=== PATIENT | female | born 1995 | race Caucasian/White ===

== ENCOUNTER 2021-02-10 10:16 | Outpatient (REF) | payer OTHER, SELFPAY ==
[2021-02-10 11:29] LABS: MANUAL DIFF FLAG NO
[2021-02-10 11:31] LABS: Basophils Percent Auto 0.7 % (0-2); Eosinophils Absolute Auto 0.1 X10*3/uL (0.0-0.4); Eosinophils Percent Auto 1.9 % (0-4); Hematocrit 44.2 % (37-47); Hemoglobin 14.8 g/dl (12.0-16.0); Imm Gran Abs Auto 0.01 X10*3/uL (0.00-0.03); Imm Gran Pct Auto 0.2 % (0.0-0.4); Lymphocytes Absolute Auto 2.5 X10*3/uL (1.2-4.9); Lymphocytes Percent Auto 42.3 % (20-40); Mean Corpuscular HGB Conc 33.5 g/dl (31.0-35.0); Mean Corpuscular Volume 89.7 fL (80-98); Mean Platelet Volume 11.4 fL (9.4-12.3); Monocytes Absolute Auto 0.5 X10*3/uL (0.1-1.2); Monocytes Percent Auto 8.7 % (2-11); Neutrophils Absolute Auto 2.7 X10*3/uL (2.0-8.3); Neutrophils Percent Auto 46.2 % (45-73); Platelet Count 210 X10*3/uL (160-400); Red Blood Count 4.93 X10*6/uL (4.20-5.50); Red Cell Distribution Width 11.5 % (11.0-16.0); White Blood Count 5.8 X10*3/uL (4.8-10.8)
[2021-02-10 12:11] LABS: Alanine Aminotransferase 12 U/L (0-31); Anion Gap 14 (12-20); Aspartate Amino Transferase 17 U/L (5-31); Blood Urea Nitrogen 7 mg/dL (9-16); Calcium 9.7 mg/dL (8.4-10.2); Carbon Dioxide 23 mmol/L (22-29); Chloride 108 mmol/L (96-108); Cholesterol 155 mg/dL; Estimated Glomerular Filt Rate > 60; Glucose Fasting 67 mg/dL (60-99); HDL Cholesterol 64 mg/dL; LDL Cholesterol Calculated 85 mg/dl; Potassium 4.7 mmol/L (3.3-5.1); Sodium 140 mmol/L (135-145); Triglycerides 34 mg/dL
[2021-02-10 12:19] LABS: Vitamin D 25-OH Total 29.2 ng/mL (>30)
[2021-02-10 12:36] LABS: Folate 15.3 ng/mL (> or = 4.0); Vitamin B12 321 pg/mL (200-900)
== END 2021-02-10 10:17 | disposition home or self-care (01) ==
LOC: HO.HMGCLDS 10:16
PROVIDERS: PCP Internal Medicine; Visit Provider Internal Medicine
DX: Z00.00 Encounter for general adult medical examination without abnormal findings (principal); I10 Essential (primary) hypertension; Z80.8 Family history of malignant neoplasm of other organs or systems
CPT/HCPCS: 36415; 80048; 80061; 82306; 82607; 82746; 84443; 84450; 84460; 85025

== ENCOUNTER 2022-06-08 09:56 | Outpatient (REF) | payer OTHER, SELFPAY ==
[2022-06-08 12:01] LABS: Alanine Aminotransferase 15 U/L (0-31); Aspartate Amino Transferase 19 U/L (5-31); Cholesterol 165 mg/dL; Glucose Fasting 83 mg/dL (60-99); HDL Cholesterol 57 mg/dL; LDL Cholesterol Calculated 101 mg/dl; Triglycerides 36 mg/dL
[2022-06-08 12:18] LABS: Vitamin D 25-OH Total 21.4 ng/mL (>30)
== END 2022-06-08 09:57 | disposition home or self-care (01) ==
LOC: HO.WFDLDS 09:56
PROVIDERS: Visit Provider Internal Medicine
DX: Z00.01 Encounter for general adult medical examination with abnormal findings (principal); R63.6 Underweight; F41.1 Generalized anxiety disorder; F50.82 Avoidant/restrictive food intake disorder
CPT/HCPCS: 36415; 80061; 82306; 82947; 84450; 84460

== ENCOUNTER 2022-10-07 07:17 | Emergency (ER) | payer OTHER, SELFPAY ==
[2022-10-07 07:20] VITALS: BP 126/87; PULSE 107; RESP 18; TEMP 36.8; O2SAT 99; BMI 17.5
--- NOTE | 2022-10-07 07:33 | ED_ITS ---
HPI - Female Genitourinary General Chief complaint: Urogenital-Female Stated complaint: uti Time Seen by Provider: 10/07/22 07:28 Source: patient Mode of arrival: ambulatory Limitations: no limitations History of Present Illness HPI Narrative: 26-year-old female presents with UTI. Her symptoms started 3 days ago with urinary frequency, urgency, dysuria and hematuria. She started using azo. Today, she has developed low back pain. She denies any nausea, vomiting, diarrhea, fevers or chills. She continues to have the additional urinary symptoms. She describes her symptoms as moderate to severe. There is no clear relieving or exacerbating features. Her pain does not radiate. It is achy in nature. Related Data Home Medications Medication Instructions Recorded Confirmed loratadine 10 mg tablet (Claritin) 10 mg PO DAILY 02/10/21 02/10/21 medroxyprogesterone 150 mg/mL mg IM 02/10/21 02/10/21 intramuscular suspension montelukast 10 mg tablet 10 mg PO DAILY 02/10/21 02/10/21 Previous Rx's Medication Instructions Recorded cephalexin 500 mg capsule 500 mg PO BID #20 caps 10/07/22 Allergies Allergy/AdvReac Type Severity Reaction Status Date / Time ibuprofen Allergy Unknown swelling Verified 06/02/22 13:45 Review of Systems Review of Systems: CONSTITUTIONAL: Denies weight loss, fever and chills. HEENT: Denies changes in vision and hearing. RESPIRATORY: Denies SOB and cough. CV: Denies palpitations no CP. GI: Denies abdominal pain, nausea, vomiting and diarrhea. : + dysuria and urinary frequency. MSK: Denies myalgia and joint pain. SKIN: Denies rash and pruritus. NEUROLOGICAL: Denies headache and syncope. PSYCHIATRIC: Denies recent changes in mood. Denies anxiety and depression. All other ROS are negative unless in HPI PMFSH Past Medical History Medical History Avoidant-restrictive food intake disorder (ARFID) Family history of thyroid cancer Generalized anxiety disorder Multiple environmental allergies Surgical History No pertinent past surgical history Family History Family History Maternal Aunt Substance use disorder Maternal Uncle Substance use disorder Mother Bronchial asthma Thyroid cancer Paternal Grandfather Colon cancer, Onset Age: 35 Paternal Grandmother Alzheimer disease, Onset Age: 60 Social History Social History Housing: House Alcohol intake: never Patient Tobacco Use Status: Never used Tobacco Smoked in Last 30 Days: No e-Cigarette/Vaping Use: Never Used Use of substances other than those prescribed or required for medical reasons: No Advance Directives: No Advance Directives Information Provided: Yes Patient : Yes service: No Current occupational status: employed Cognitive needs: No Hearing needs: No Vision needs: No Physical Exam Vital Signs: Vital Signs: Last Vital Signs Temp 98.2 F 10/07/22 07:20 Pulse 107 H 10/07/22 07:20 Resp 18 10/07/22 07:20 BP 126/87 10/07/22 07:20 Pulse Ox 99 10/07/22 07:20 O2 Del Method Room Air 10/07/22 07:20 BMI result Body Mass Index 17.5 GEN: Well developed, no acute distress, alert, oriented HEENT: Normocephalic, atraumatic, normal external ears, nose appears normal, no oropharyngeal edema or exudates Eyes: Normal to appearance Neck: Supple, no lymphadenopathy Respiratory: Talks in complete sentences, no respiratory distress, clear to auscultation bilaterally Cardiovascular: Regular rate and rhythm, no murmurs rubs or gallops Abdomen: Soft, nontender, nondistended, no guarding, no rebound Back: + CVA tenderness Extremities: No clubbing cyanosis or edema Neurologic: No focal neurologic deficits, cranial nerves 2-12 intact, strength is 5/5 bilaterally Skin: No rash Course Course Course Narrative: 26-year-old female presents with urinary symptoms and now has CVA tenderness. I suspect patient has an ascending UTI. At this time awaiting urinalysis. Patient will likely need be on antibiotics. She can continue azo. She will be encouraged to increase her fluid intake. There is no indication for imaging at this time. Reevaluation(s) Reevaluation #1: Urinalysis returns for consistent for urinary tract infection. Will start patient on Keflex twice daily for 10 days. Follow-up will be as needed. Time: 08:24 Medical Decision Making Medical Decision Making MDM Narrative: 26-year-old female presents with urinary frequency, urgency, dysuria, low back pain. Examination revealed bilateral CVA tenderness. Abdomen is soft and nontender. Will check urinalysis. Assuming this is urinary tract infection, will treat with antibiotics. She will also receive medications for symptomatic relief. Differential diagnosis includes urinary tract infection, pyelonephritis, nephro lithiasis, ureterolithiasis, intra-abdominal infection. Plan urinalysis, likely antibiotics and discharged home. Differential Diagnosis Differential Diagnoses: The differential diagnosis associated with the p resentation includes (See above) Lab Data MDM Lab Attestation statement: I reviewed the patient's lab results. Labs: Lab Results 10/07/22 10/07/22 Range/Units 07:46 07:46 Urine Color Yellow Urine Appearance Turbid Urine pH 7.0 (5.0-9.0) Ur Specific [place] 1.015 (1.005-1.025) Urine Protein 300 (3+) H (Neg-Trace) mg/dL Urine Glucose (UA) Negative (Negative) mg/dL Urine Ketones Negative (Negative) mg/dL Urine Blood Large (3+) H (Negative) Urine Nitrite Positive H (Negative) Ur Leukocyte Esterase Large (3+) H (Negative) Urine RBC >20 H (0-2) /HPF Urine WBC >50 H (0-5) /HPF Ur Squamous Epith Cells 6-10 (0-2) /HPF Urine Bacteria 3+ (None Seen) Hyaline Casts 3-5 (0-2) /LPF Urine Test NEGATIVE (NEGATIVE) Prescription Management I considered prescription management with: Antibiotic Discharge Plan Discharge Clinical Impression: Pyelonephritis Patient Disposition: Home, Self-Care Instructions: Kidney Infection (ED) Prescriptions: New cephalexin 500 mg capsule 500 mg PO BID Qty: 20 0RF No Action montelukast 10 mg tablet 10 mg PO DAILY loratadine [Claritin] 10 mg tablet 10 mg PO DAILY medroxyprogesterone 150 mg/mL suspension IM Referrals: Physician,Unknown J [Primary Care Provider] - (PMD 3-5 days if no improvement)
[2022-10-07 07:56] LABS: Appearance Urine Turbid; Color Urine Yellow; Glucose Urine UA Negative (Negative); Leukocyte Esterase Urine Large (3+) (Negative); Nitrite Urine Positive (Negative); Specific Gravity - Urine 1.015 (1.005-1.025); UMIC TRIGGER UACC YES; Urine Blood Large (3+) (Negative); Urine Ketones Negative (Negative); Urine Protein 300 (3+) mg/dL (Neg-Trace)
[2022-10-07 07:57] LABS: UPreg QC Valid YES; Urine Pregnancy NEGATIVE (NEGATIVE)
[2022-10-07 08:11] LABS: Bacteria Urine 3+ (None Seen); RBC Urine >20 /HPF (0-2); UACC Culture Trigger YES; WBC Urine >50 /HPF (0-5)
[2022-10-07] MEDS: cephALEXin 500 MG CAPSULE PO (08:47)
== END 2022-10-07 08:51 | disposition home or self-care (01) ==
PROVIDERS: Emergency Provider Emergency Medicine
DX: N12 Tubulo-interstitial nephritis, not specified as acute or chronic (principal); Z79.899 Other long term (current) drug therapy
CPT/HCPCS: 81001; 81025; 87086; 87088; 87186; 99283; 99284

== ENCOUNTER 2023-10-17 10:28 | Outpatient (AMB) | payer OTHER, SELFPAY ==
[2023-10-17 10:35] VITALS: BP 100/60; PULSE 98; O2SAT 97; BMI 18.2
--- NOTE | 2023-10-17 10:35 | A.OFFPC_ITS ---
Vital Signs 10/17/23 10:35 Height 5 ft 4 in Weight 106 lb BMI 18.2 BP 100/60 Blood Pressure Location Lt brachial Position Sitting Pulse 98 Pulse Source Pulse Oximeter Pulse Oximetry (%) 97 Oxygen Delivery Method Room Air Intake Visit Reasons: PE Intake Note: Pt is here today for her PE Allergies ibuprofen Allergy (Unknown, Verified 10/17/23 10:44) swelling Medication List - Last Reconciled 10/17/23 by Radha Jiménez MD loratadine (Claritin) 10 mg PO DAILY medroxyprogesterone mg IM montelukast 10 mg PO DAILY Tobacco use date assessed: 10/17/23 Dental Screening Dental Screen Date: 10/17/23 Did you have a dental visit in the last 12 months?: No Was dental information given to patient?: Patient has dentist HPI PE HPI Details 27-year-old lady here today for physical exam. Currently goes to [facility] for routine Pap and pelvic exam, last done 2021 with negative findings. She previously was on Nexplanon but had irregular periods and was switched to Depo-Provera. Patient states however that she has been on it for more than 2 years and is thinking to switch to control pills. She has Generalized anxiety disorder, and Avoidant Food-Restrictive Food intake disorder followed at [facility] by Lashell Fonseca. She has multiple environmental allergies currently taking loratadine and montelukast. She has been feeling well, has gained some weight since last visit, no complaints at present agustin. Has environmental allergies currently takes loratadine and montelukast. [facility] Medical History Family history of diabetes mellitus in father Generalized anxiety disorder Avoidant-restrictive food intake disorder (ARFID) Family history of thyroid cancer Multiple environmental allergies Surgical History No pertinent past surgical history Family History Maternal Aunt Substance use disorder Maternal Uncle Substance use disorder Mother Bronchial asthma Thyroid cancer Paternal Grandfather Colon cancer, Onset Age: 35 Paternal Grandmother Alzheimer disease, Onset Age: 60 Social History Housing: House Alcohol intake: never Patient Tobacco Use Status: Never used Tobacco e-Cigarette/Vaping Use: Never Used service: No Current occupational status: employed Cognitive needs: No Hearing needs: No Vision needs: No Female Reproductive History Menstrual control method: progesterone injection Questionnaire PHQ-9 Over the last 2 weeks, how often have you been bothered by any of the following problems? 1. Little interest or pleasure in doing things: not at all 2. Feeling down, depressed, or hopeless: not at all 3. Trouble falling or staying asleep, or sleeping too much: not at all 4. Feeling tired or having little energy: not at all 5. Poor appetite or overeating: not at all 6. Feeling bad about yourself - or that you are a failure or have let yourself or your family down: not at all 7. Trouble concentrating on things, such as reading the newspaper or watching television: not at all 8. Moving or speaking so slowly that other people could have noticed. Or the opposite - being so fidgety or restless that you have been moving around a lot more than usual: not at all 9. Thoughts that you would be better off or of hurting yourself in some way: not at all Total score: 0 Depression Screening Interpretation: Negative Depression Screening Done: Yes 71322 - PHQ-9 Billing: Yes Source: Developed by Drs. Dave Addison, Orquidea Manley, Nir Goins and colleagues, with an educational rajeev from [employer]. Thrive Questionnaire Date Thrive assessed: 10/17/23 I am a: Patient What is your living situation today?: I have a steady place to live Within the past 12 months, did the food you bought not last and you didn't have the money to get more?: Never true Within the past 12 months, did you worry whether your food would run out before you got money to buy more?: Never true Do you have trouble paying for medicines?: No Do you have trouble getting transportation to medical appointments?: No Do you have trouble paying your heating and electricity bill?: No Do you have trouble taking care of your child, family member or friend?: No Do you have trouble with day-to-day activities such as bathing, preparing meals, shopping, managing finances, etc.?: No Are you currently unemployed and looking for a job?: No Are you interested in more education?: No THRIVE Score: 0 AUDIT C Alcohol Use Questionnaire (AUDIT-C) 1. How often do you have a drink containing alcohol?: 2-4 times a month 2. How many drinks containing alcohol do you have on a typical day when you are drinking?: 3 or 4 3. How often do you have six or more drinks on one occasion?: Less than monthly Total Score: 4 KERI-7 AMB Questionnaire KERI-7 Date KERI - 7 assessed: 10/17/23 Feeling nervous, anxious, or on edge: 0 = Not at all Not being able to stop or control worryin = Not at all Worrying too much about different things: 0 = Not at all Trouble relaxin = Not at all Being so restless that it is hard to sit still: 0 = Not at all Becoming easily annoyed or irritable: 0 = Not at all Feeling afraid as if something awful might happen: 0 = Not at all Total KERI-7 score (0-4 normal; 5-9 mild; 10-14 moderate; 15-21 severe): 0 Source: Developed by Drs. Dave Addison, Orquidea Manley, Nir Goins and colleagues, with an educational rajeev from [employer]. KERI-7 Assessment Billing KERI-7 Assessment Tool: KERI-7 Assessment 19756 Review of Systems Const Denies body aches, Denies fatigue, Denies fever(s), Denies headache(s) and Denies weakness Eyes Denies change in vision, Denies eye discharge and Denies itchy eyes ENT Denies dizziness, Denies headache(s), Denies nasal congestion, Denies nasal discharge and Denies sore throat Card Denies chest pain, Denies lightheadedness, Denies palpitations and Denies dyspnea Resp Denies chest congestion, Denies cough, Denies dyspnea and Denies wheezing GI Denies abdominal pain, Denies change in bowel habits and Denies heartburn Denies urinary frequency, Denies dysuria and Denies urinary urgency Musc Reports no additional complaints and Reports stiffness (Occasional) Skin/Breast Denies lesions and Denies rash Neuro Denies dizziness, Denies headache(s) and Denies weakness Psych Reports as per HPI Endo Denies fatigue, Denies polydipsia, Denies polyuria and Denies palpitations [place]/Lymph Denies easy bruising Aller/Immun Denies itchy eyes, Denies seasonal rhinorrhea and Denies wheezing Physical exam (Primary Care) Vital Signs: Last Vital Signs Pulse 98 10/17/23 10:35 BP 100/60 10/17/23 10:35 Pulse Ox 97 10/17/23 10:35 Oxygen Delivery Method Room Air 10/17/23 10:35 BMI result Body Mass Index 18.2 BMI Assessment/Plan discussion: Low BMI Low, Plan discussed: lifestyle, increase calorie intake, dietary and other (Currently being followed by a habilitation training specialist) Tobacco/Smoking Status: Tobacco use Status Tobacco use date assessed 06/02/22 10/21/22 11:03 Patient Tobacco Use Status Never used Tobacco 10/21/22 13:40 e-Cigarette/Vaping Use Never Used 10/21/22 11:03 Depression Screening Interpretation: Negative Thrive Assessment: Date of Thrive Assessment Date Thrive assessed 06/02/22 10/21/22 11:03 Const General: cooperative, comfortable and no acute distress Orientation/consciousness: patient oriented x3 HENMT Ears: hearing grossly normal bilaterally, external ears normal, TM's normal bilaterally and EAC's normal General nose exam: Normal external nose present, Normal nasal mucous membranes and turbinates present and No nasal discharge present Mouth: Normal oral and palatal mucosa present, oropharynx normal and moist mucous membranes Throat: Yes posterior oropharynx normal Eyes General: appearance normal, both eyes and all related structures Neck Neck: Yes full ROM, Yes no lymphadenopathy and Yes supple Thyroid: Thyroid normal Chest Chest palpation & inspection: normal inspection of the chest Breast/axilla palpation: normal palpation of the breasts Resp Effort & Inspection: normal respiratory effort and able to speak in complete sentences Auscultation: clear to auscultation bilaterally Cardio Rate: regular rate Rhythm: regular rhythm Heart sounds: S1 normal heart sound present and S2 normal heart sound present GI Inspection: Yes normal to inspection Palpation (GI): Soft to palpation, nontender and no masses Auscultation: normal bowel sounds Other: Deferred, goes to [facility], last Pap smear was in 2021 with normal findings Back/Spine/Pelvis Cervical Spine: cervical ROM normal Thoracic/Lumbar Spine: thoracic and lumbar spine normal to inspection Skin General skin exam: no rashes or lesions noted Neuro General: patient oriented x3, gait normal, tone normal, moves all extremities, Normal light touch and pain sensation and no focal motor deficits Cognition (Neuro): normal cognition Gait exam (Neuro): Normal gait present Motor exam (neuro): 5/5 motor strength present throughout Extrem General: Yes normal to inspection, Yes full ROM, Yes no joint enlargement, Yes no clubbing, cyanosis or edema and Yes no calf tenderness Psych Appearance: grossly normal Mental Status: mental status grossly normal Speech and movement: Normal speech and movement present Affect: normal affect Attitude: cooperative Thought process: Normal thought process present Assessment and Plan Assessment & Plan (1) Annual visit for general adult medical examination with abnormal findings: Code(s): Z00.01 - Encounter for general adult medical examination with abnormal findings Plan: Will check appropriate labs. Recommended dental visit every 6 months and regular eye exams, at least every 2 years. . Instructed to do self-breast exam, and recommended to get yearly mammogram, starting at age 40. COVID vaccines in the past but does not want to get the booster, reminded to get her yearly flu shot and is up-to-date with her Tdap (2) Family history of thyroid cancer: Code(s): Z80.8 - Family history of malignant neoplasm of other organs or systems Plan: Will check TSH and free T4 (3) Generalized anxiety disorder: Comment: sees therapist at [facility] Lashell Fonseca Code(s): F41.1 - Generalized anxiety disorder Plan: Currently followed by behavioral therapist and [facility] (4) History of vitamin D deficiency: Code(s): Z86.39 - Personal history of other endocrine, nutritional and metabolic disease Plan: Will check vitamin-D level Orders: Orders Vitamin D 25-OH Total Today F41.1 - Generalized anxiety disorder, Z00.01 - Encounter for general adult medical examination with abnormal findings, Z13.220 - Encounter for screening for lipoid disorders, Z80.8 - Family history of malignant neoplasm of other organs or systems, Z83.3 - Family history of diabetes mellitus, Z86.39 - Personal history of other endocrine, nutritional and metabolic disease Hemoglobin and Hematocrit Today F41.1 - Generalized anxiety disorder, Z00.01 - Encounter for general adult medical examination with abnormal findings, Z13.220 - Encounter for screening for lipoid disorders, Z80.8 - Family history of malignant neoplasm of other organs or systems, Z83.3 - Family history of diabe kae mellitus, Z86.39 - Personal history of other endocrine, nutritional and metabolic disease Alanine Aminotransferase Today F41.1 - Generalized anxiety disorder, Z00.01 - E ncounter for general adult medical examination with abnormal findings, Z13.220 - Encounter for screening for lipoid disorders, Z80.8 - Family history of malignant neoplasm of other organs or systems, Z83.3 - Family history of diabetes mellitus, Z86.39 - Personal history of other endocrine, nutritional and metabolic disease Aspartate Amino Transferase Today F41.1 - Generalized anxiety disorder, Z00.01 - Encounter for general adult medical examination with abnormal findings, Z13.220 - Encounter for screening for lipoid disorders, Z80.8 - Family history of malignant neoplasm of other organs or systems, Z83.3 - Family history of diabetes mellitus, Z86.39 - Personal history of other endocrine, nutritional and metabolic disease Lipid Panel Today F41.1 - Generalized anxiety disorder, Z00.01 - Encounter for general adult medical examination with abnormal findings, Z13.220 - Encounter for screening for lipoid disorders, Z80.8 - Family history of malignant neoplasm of other organs or systems, Z83.3 - Family history of diabetes mellitus, Z86.39 - Personal history of other endocrine, nutritional and metabolic disease Glucose Fasting Today F41.1 - Generalized anxiety disorder, Z00.01 - Encounter for general adult medical examination with abnormal findings, Z13.220 - Encounter for screening for lipoid disorders, Z80.8 - Family history of malignant neoplasm of other organs or systems, Z83.3 - Family history of diabetes mellitus, Z86.39 - Personal history of other endocrine, nutritional and metabolic disease TSH reflex Free T4 Today F41.1 - Generalized anxiety disorder, Z00.01 - Encounter for general adult medical examination with abnormal findings, Z13.220 - Encounter for screening for lipoid disorders, Z80.8 - Family history of malignant neoplasm of other organs or systems, Z83.3 - Family history of diabetes mellitus, Z86.39 - Personal history of other endocrine, nutritional and metabolic disease Coding Level of Care Code Est Pt Prev Care 18-39y([id number]) Diagnoses Annual visit for general adult medical examination with abnormal findings Z00.01 Family history of thyroid cancer Z80.8 Generalized anxiety disorder F41.1 History of vitamin D deficiency Z86.39 Additional Codes KERI-7 Assessment Billing - KERI-7 Assessment Tool: KERI-7 Assessment [id number] ([id number])
== END 2023-10-17 11:01 | disposition home or self-care (01) ==
PROVIDERS: PCP Internal Medicine; Visit Provider Internal Medicine
DX: Z00.00 Encounter for general adult medical examination without abnormal findings (principal); Z80.8 Family history of malignant neoplasm of other organs or systems; F41.1 Generalized anxiety disorder; Z86.39 Personal history of other endocrine, nutritional and metabolic disease
CPT/HCPCS: 99395

== ENCOUNTER 2023-10-18 09:38 | Outpatient (REF) | payer OTHER, SELFPAY ==
[2023-10-18 13:15] LABS: Hematocrit 40.7 % (37.0-47.0); Hemoglobin 13.5 g/dl (12.0-16.0)
[2023-10-18 13:37] LABS: Alanine Aminotransferase 13 U/L (0-31); Aspartate Amino Transferase 19 U/L (5-31); Cholesterol 154 mg/dL (<200); Glucose Fasting 84 mg/dL (60-99); HDL Cholesterol 69 mg/dL (>40); LDL Cholesterol Calculated 75 mg/dL (<100); Triglycerides 54 mg/dL (<150)
[2023-10-18 13:54] LABS: TSH reflex Free T4 1.91 uIU/mL (0.32-4.0); Vitamin D 25-OH Total 60.1 ng/mL (>30)
== END 2023-10-18 09:39 | disposition home or self-care (01) ==
LOC: HO.WFDLDS 09:38
PROVIDERS: Visit Provider Internal Medicine
DX: Z00.01 Encounter for general adult medical examination with abnormal findings (principal); F41.1 Generalized anxiety disorder; Z80.8 Family history of malignant neoplasm of other organs or systems; Z86.39 Personal history of other endocrine, nutritional and metabolic disease; Z13.220 Encounter for screening for lipoid disorders; Z83.3 Family history of diabetes mellitus
CPT/HCPCS: 36415; 80061; 82306; 82947; 84443; 84450; 84460; 85014; 85018

== ENCOUNTER 2024-12-02 08:26 | Outpatient (AMB) | payer BC, SELFPAY ==
--- NOTE | 2024-12-02 08:41 | MHC.PC.OV ---
Vital Signs 12/02/24 08:42 Height 5 ft 4 in Weight 99 lb 6 oz BMI 17.1 BP 100/80 Blood Pressure Location Rt brachial Position Sitting Respiration 15 Pulse 87 Pulse Source Pulse Oximeter Temp 98.2 F Temp Source Oral Pulse Oximetry (%) 99 Oxygen Delivery Method Room Air Intake Visit Reasons: PE Intake Note: Pt is here today for her PE: last papsmear 07/23/21 Is last menstrual period known: Yes Last menstrual period: 11/04/24 Allergies ibuprofen Allergy (Unknown, Verified 12/02/24 08:59) swelling Medication List - Last Reconciled 12/02/24 by Radha Jiménez MD desogestrel-ethinyl estradiol 0.15-0.03 mg (Apri) 1 tab PO DAILY loratadine (Claritin) 10 mg PO DAILY montelukast 10 mg PO DAILY Tobacco use date assessed: 12/02/24 Dental Screening Dental Screen Date: 10/17/23 HPI PE HPI Details - The patient is a 29-year-old female presenting for an annual physical examination. - Allergic rhinitis: Managed with montelukast, effective for both allergies and asthma. Developed allergies to dogs after returning home, but current non-shedding dog does not trigger symptoms. - Exercise-induced bronchospasm: Symptoms noted during high school, with mild exertional dyspnea currently. - History of urinary tract infection: Previous kidney infection treated with antibiotics, occasional back pain post-alcohol consumption, especially beer. - Family history: Mother had thyroid cancer; father has type 2 diabetes mellitus. No personal history of these conditions. - Generalized anxiety disorder: Managed with behavioral techniques, no medication used. -last cervical cancer screening and pelvic exam was done in 2021 with benign findings, goes to [facility] Medical History (Updated 12/02/24 @ 09:05 by Radha Jiménez MD) Exercise-induced bronchospasm Family history of diabetes mellitus in father Generalized anxiety disorder Avoidant-restrictive food intake disorder (ARFID) Family history of thyroid cancer Multiple environmental allergies Surgical History No pertinent past surgical history Family History Maternal Aunt Substance use disorder Maternal Uncle Substance use disorder Mother Bronchial asthma Thyroid cancer Paternal Grandfather Colon cancer, Onset Age: 35 Paternal Grandmother Alzheimer disease, Onset Age: 60 Social History Housing: House Alcohol intake: never Patient Tobacco Use Status: Never used Tobacco e-Cigarette/Vaping Use: Never Used service: No Current occupational status: employed Cognitive needs: No Hearing needs: No Vision needs: No Female Reproductive History Menstrual Date of last menstrual period: 11/04/24 Other: Goes to [facility] for her routine Pap and pelvic exam Questionnaire PHQ-9 Over the last 2 weeks, how often have you been bothered by any of the following problems? 1. Little interest or pleasure in doing things: not at all 2. Feeling down, depressed, or hopeless: not at all 3. Trouble falling or staying asleep, or sleeping too much: not at all 4. Feeling tired or having little energy: not at all 5. Poor appetite or overeating: not at all 6. Feeling bad about yourself - or that you are a failure or have let yourself or your family down: not at all 7. Trouble concentrating on things, such as reading the newspaper or watching television: not at all 8. Moving or speaking so slowly that other people could have noticed. Or the opposite - being so fidgety or restless that you have been moving around a lot more than usual: not at all 9. Thoughts that you would be better off or of hurting yourself in some way: not at all Total score: 0 Depression Screening Interpretation: Negative Depression Screening Done: Yes 64396 - PHQ-9 Billing: Yes Source: Developed by Drs. Dave Addison, Orquidea Manley, Nir Goins and colleagues, with an educational rajeev from [employer]. Thrive Questionnaire Date Thrive assessed: 12/01/24 I am a: Patient What is your living situation today?: I have a steady place to live Within the past 12 months, did the food you bought not last and you didn't have the money to get more?: Never true Within the past 12 months, did you worry whether your food would run out before you got money to buy more?: Never true Do you have trouble paying for medicines?: No Do you have trouble getting transportation to medical appointments?: No Do you have trouble paying your heating and electricity bill?: No Do you have trouble taking care of your child, family member or friend?: No Do you have trouble with day-to-day activities such as bathing, preparing meals, shopping, managing finances, etc.?: No Are you currently unemployed and looking for a job?: No Are you interested in more education?: No Please select the resources that you would like help with: None Currently or been in a relationship where the following occur: No concerns reported THRIVE Score: 0 AUDIT C Alcohol Use Questionnaire (AUDIT-C) 1. How often do you have a drink containing alcohol?: 2-4 times a month 2. How many drinks containing alcohol do you have on a typical day when you are drinking?: 1 or 2 3. How often do you have six or more drinks on one occasion?: Less than monthly Total Score: 3 Score Reviewed/Action Taken: Yes KERI-7 AMB Questionnaire KERI-7 Date KERI - 7 assessed: 12/02/24 Feeling nervous, anxious, or on edge: 0 = Not at all Not being able to stop or control worryin = Not at all Worrying too much about different things: 0 = Not at all Trouble relaxin = Not at all Being so restless that it is hard to sit still: 0 = Not at all Becoming easily annoyed or irritable: 0 = Not at all Feeling afraid as if something awful might happen: 0 = Not at all Total KERI-7 score (0-4 normal; 5-9 mild; 10-14 moderate; 15-21 severe): 0 Source: Developed by Drs. Dave Addison, Orquidea Manley, Nir Goins and colleagues, with an educational rajeev from [employer]. KERI-7 Assessment Billing KERI-7 Assessment Tool: KERI-7 Assessment 60331 Review of Systems Const Denies body aches, Denies fatigue, Denies fever(s), Denies headache(s) and Denies weakness Eyes Denies change in vision, Denies eye discharge and Denies itchy eyes ENT Denies dizziness, Denies headache(s), Denies nasal congestion, Denies nasal discharge and Denies sore throat Card Denies chest pain, Denies lightheadedness, Denies palpitations and Denies dyspnea Resp Denies chest congestion, Denies cough, Denies dyspnea and Denies wheezing GI Denies abdominal pain, Denies change in bowel habits and Denies heartburn Denies urinary frequency, Denies dysuria and Denies urinary urgency Musc Reports no additional complaints and Reports stiffness (Occasional) Skin/Breast Denies lesions and Denies rash Neuro Denies dizziness, Denies headache(s) and Denies weakness Psych Reports as per HPI Endo Denies fatigue, Denies polydipsia, Denies polyuria and Denies palpitations [place]/Lymph Denies easy bruising Aller/Immun Denies itchy eyes, Denies seasonal rhinorrhea and Denies wheezing Physical exam (Primary Care) Vital Signs: Last Vital Signs Temp 98.2 F 12/02/24 08:42 Pulse 87 12/02/24 08:42 Resp 15 12/02/24 08:42 BP 100/80 12/02/24 08:42 Pulse Ox 99 12/02/24 08:42 Oxygen Delivery Method Room Air 12/02/24 08:42 BMI result Body Mass Index 17.1 BMI Assessment/Plan discussion: Low BMI Low, Plan discussed: lifestyle, increase calorie intake, dietary and other (Currently being followed by a activity therapy specialist) Tobacco/Smoking Status: Tobacco use Status Tobacco use date assessed 12/02/24 12/02/24 08:44 Patient Tobacco Use Status Never used Tobacco 12/02/24 08:42 e-Cigarette/Vaping Use Never Used 12/02/24 08:42 PHQ-9: PHQ-9 Score PHQ-9: Total score 0 12/02/24 09:03 Depression Screening Interpretation: Negative Thrive Assessment: Date of Thrive Assessment Date Thrive assessed 12/01/24 12/02/24 08:42 Currently or been in a relationship where the following occur: No concerns reported Const General: cooperative, comfortable and no acute distress Orientation/consciousness: patient oriented x3 HENMT Ears: external ears normal, TM's normal bilaterally and EAC's normal General nose exam: Normal external nose present and Normal nasal mucous membranes and turbinates present Mouth: Normal oral and palatal mucosa present and moist mucous membranes Eyes General: appearance normal, both eyes and all related structures Neck Neck: Yes full ROM, Yes no lymphadenopathy and Yes supple Thyroid: Thyroid normal Chest Chest palpation & inspection: normal inspection of the chest Breast/axilla palpation: normal palpation of the breasts Resp Effort & Inspection: normal respiratory effort and able to speak in complete sentences Auscultation: clear to auscultation bilaterally Cardio Rate: regular rate Rhythm: regular rhythm Heart sounds: S1 normal heart sound present and S2 normal heart sound present GI Inspection: Yes normal to inspection Palpation (GI): Soft to palpation, nontender and no masses Auscultation: normal bowel sounds Other: Deferred, goes to [facility], last Pap smear was in 2021 with normal findings Back/Spine/Pelvis Cervical Spine: cervical ROM normal Thoracic/Lumbar Spine: thoracic and lumbar spine normal to inspection Skin General skin exam: no rashes or lesions noted Neuro General: patient oriented x3, gait normal, moves all extremities and no focal motor deficits Cognition (Neuro): normal cognition Gait exam (Neuro): Normal gait present Extrem General: Yes normal to inspection, Yes full ROM, Yes no joint enlargement and Yes no clubbing, cyanosis or edema Psych Appearance: grossly normal Mental Status: mental status grossly normal Speech and movement: Normal speech and movement present Affect: normal affect Attitude: cooperative Coding Level of Care Code Est Pt Prev Care 18-39y(44809) Diagnoses Annual visit for general adult medical examination with abnormal findings Z00.01 Multiple environmental allergies Z91.09 Family history of thyroid cancer Z80.8 Avoidant-restrictive food intake disorder (ARFID) F50.82 Generalized anxiety disorder F41.1 Exercise-induced bronchospasm J45.990 Advance directive discussed with patient Z71.89 Additional Codes KERI-7 Assessment Billing - KERI-7 Assessment Tool: KERI-7 Assessment 44124 ([id number]) PHQ-9 - 98051 - PHQ-9 Billing: Yes ([id number]) Assessment & Plan Assessment & Plan (1) Annual visit for general adult medical examination with abnormal findings: Code(s): Z00.01 - Encounter for general adult medical examination with abnormal findings (2) Multiple environmental allergies: Code(s): Z91.09 - Other allergy status, other than to drugs and biological substances Category: Medical (3) Family history of thyroid cancer: Code(s): Z80.8 - Family history of malignant neoplasm of other organs or systems Category: Medical (4) Avoidant-restrictive food intake disorder (ARFID): Comment: ff'd at [facility] by Lashell De Los Santos Code(s): F50.82 - Avoidant/restrictive food intake disorder Category: Medical Plan: Currently sees a activity therapy specialist (5) Generalized anxiety disorder: Comment: sees therapist at [facility] Lashell Fonseca Code(s): F41.1 - Generalized anxiety disorder Category: Medical (6) Exercise-induced bronchospasm: Code(s): J45.990 - Exercise induced bronchospasm Category: Medical (7) Advance directive discussed with patient: Code(s): Z71.89 - Other specified counseling Plan: Initiated the conversation about Advanced Directives. Advanced Directives help patients prepare for current and future decisions about their medical treatment and place of care. Discussed with patient that it is a process where a patients current condition and prognosis are reviewed, their wishes for information regarding their illness are elicited, and likely medical dilemmas are presented and options discussed. Healthcare proxy form completed today. The form can be amended as needed, reviewed yearly and make changes as needed Plan The patient will continue montelukast for allergic rhinitis and asthma management. Prescription sent for albuterol inhaler to use as needed for exercise-induced bronchospasm symptoms . Kidney function and electrolytes will be evaluated to address previous urinary tract infection concerns and back pain. Preventative care includes updating vaccinations and scheduling a Pap smear. The patient continues to manage anxiety through behavioral techniques. Regular physical exams will continue to ensure comprehensive health monitoring. Patient was informed and verbally consented to the use of an ambient scribe for clinic note documentation during this visit. Orders: Orders Vitamin D 25-OH Total 12/05/24 F41.1 - Generalized anxiety disorder, F50.82 - Avoidant/restrictive food intake disorder, J45.990 - Exercise induced bronchospasm, Z00.01 - Encounter for general adult medical examination with abnormal findings, Z13.1 - Encounter for screening for diabetes mellitus, Z13.220 - Encounter for screening for lipoid disorders, Z71.89 - Other specified counseling, Z80.8 - Family history of malignant neoplasm of other organs or systems, Z91.09 - Other allergy status, other than to drugs and biological substances TSH reflex Free T4 12/05/24 F41.1 - Generalized anxiety disorder, F50.82 - Avoidant/restrictive food intake disorder, J45.990 - Exercise induced bronchospasm, Z00.01 - Encounter for general adult medical examination with abnormal findings, Z13.1 - Encounter for screening for diabetes mellitus, Z13.220 - Encounter for screening for lipoid disorders, Z71.89 - Other specified counseling, Z80.8 - Family history of malignant neoplasm of other organs or systems, Z91.09 - Other allergy status, other than to drugs and biological substances Basic Metabolic Panel Fasting 12/05/24 F41.1 - Generalized anxiety disorder, F50.82 - Avoidant/restrictive food intake disorder, J45.990 - Exercise induced bronchospasm, Z00.01 - Encounter for general adult medical examination with abnormal findings, Z13.1 - Encounter for screening for diabetes mellitus, Z13.220 - Encounter for screening for lipoid disorders, Z71.89 - Other specified counseling, Z80.8 - Family history of malignant neoplasm of other organs or systems, Z91.09 - Other allergy status, other than to drugs and biological substances Lipid Panel 12/05/24 F41.1 - Generalized anxiety disorder, F50.82 - Avoidant/restrictive food intake disorder, J45.990 - Exercise induced bronchospasm, Z00.01 - Encounter for general adult medical examination with abnormal findings, Z13.1 - Encounter for screening for diabetes mellitus, Z13.220 - Encounter for screening for lipoid disorders, Z71.89 - Other specified counseling, Z80.8 - Family history of malignant neoplasm of other organs or systems, Z91.09 - Other allergy status, other than to drugs and biological substances Medications: New albuterol sulfate 90 mcg/actuation (Ventolin HFA) 1 inh inhalation QID PRN 8.5 grams 0RF shortness of breath or wheezing J45.990 - Exercise induced bronchospasm, Z91.09 - Other allergy status, other than to drugs and biological substances
[2024-12-02 08:42] VITALS: BP 100/80; PULSE 87; RESP 15; TEMP 36.8; O2SAT 99; BMI 17.1
--- OUTSIDE RECORDS SUMMARY | 2024-12-02 08:50 | XMS_ITS | Patient Health Record ---
Author Organization [facility] Address [address] [place] [id number] Care Team Providers Care Slinger Sequins Name Role Phone Maria Del Carmen Gutierrez Primary Care Provider Markie Scott Jr Unavailable [phone] Reason For Referral No Information Medications Medication SIG (Take, Route, Frequency, Duration) Notes Start Date End Date Status Levsin/SL 0.125 MG 1 tablet under the t ongue and allow to dissolve as needed Sublingual every 4 hrs as needed for pain 11/17/2017 Active Cyproheptadine HCl A ctive Nexplanon 68 MG Subcutaneous A ctive Sertraline HCl 25 MG TAKE 1 TABLET BY MO UT EVERY DAY W/ 50MG TAB FOR TOTAL DOSE OF 75MG Oral for 30 Active Pantoprazole Sodium 20 MG TAKE 1 TABLET BY MOUTH EVERY DAY Oral for 90 Active Immunizations Vaccine Route Administration Date Status Comme nts Influenza Unknown 11/15/2017 Administered Social History Tobacco Use: Social History Observation Description Date Details (start date - stop date) Never Smoker NA - NA Tobacco Use/Smoking Question Answer Notes Patient is a nonsmoker Alcohol Screen Question Answer Notes Did you have a drink contain ing alcohol in the past year? Yes How often did you have a dri nk containing alcohol in the past year? Monthly or less (1 point) How many drinks did you have on a typical day when you were drinking in the past year? 1 or 2 drinks (0 point) How often did you have 6 or more drinks on one occasion in the past year? Never (0 point) Points 1 Interpretation Negative Section Notes: social occasional drink social occasional drink Problems Problem Type SNOMED Code ICD Code Onset Dates Problem Status W/U Status Risk Notes Problem 784024897 Gastroesophageal reflux disease without esophagitis (K21.9) Active confirmed Problem 161097477 Esophageal spasm (K22.4) Active confirmed Problem 60229877 Dysphagia, unspecified type (R13.10) Active confirmed Plan Of Treatment Future Test Test Name Order Date UPPER GI ENDOSCOPY 10/13/2017 Insurance Providers Payer Name Payer Address Payer Phone Subscriber Number Group Number Insured Name Patient Relationship to Insured Coverage Start Date Coverage End Date [facility] [address] [address] [place] [address] [id number] LINDA HERNANDEZ Self - patient is the insured Medical (General) History Medical History History ICD Code asthma Denies [place],DM,CVA,Lung disease,renal dise ase Surgical History Surgery Date(Month/Year)
--- OUTSIDE RECORDS SUMMARY | 2024-12-02 08:50 | XMS_ITS | Clinical Summary ---
Author Organization [facility] Address [address] [place] [address] Phone Care Team Providers Care Casing Splitter Name Role Phone Maria Del Carmen Gutierrez MD Primary Care Provider [phone] Allergies No known active allergies Medications montelukast (SINGULAIR) 10 mg tablet Take 10 mg by mouth nightly. Active cyproheptadine (PERIACTIN) 4 mg tablet Take 4 mg by mouth daily. Active sertraline (ZOLOFT) 25 MG tablet Take 75 mg by mouth daily. Active Active Problems Problem Noted Date Diagnosed Date Esophageal dysphagia 08/22/2017 Chest pain not due to acute coronary syndrome Social History Tobacco Use Types Packs/Day Years Used Date Smoking Tobacco: Never Assessed Education Answer Date Recorded Are you interested in more education? Not on meagan e 08/12/2022 Are you concerned about learning? Not on file 08/12/2022 No 08/12/2022 No 08/12/2022 Digital Access Answer Date Recorded No 09/12/2022 No 09/12/2022 No 09/12/2022 Reliable internet access at home? Not on file 09/12/2022 Device with a working camera? Not on file Comments Unknown Sex and Gender Information Value Date Recorded Sex Assigned at Not on file Legal Sex Female 4:47 PM EDT Gender Identity Not on file Sexual Orientation Not on file Last Filed Vital Signs Vital Sign Reading Time Taken Comments Blood Pressure 92/58 08/22/2017 2:33 PM EDT Pulse 64 08/22/2017 2:33 PM EDT Temperature - - Respiratory Rate 16 08/22/2017 2:33 PM EDT Oxygen Saturation - - Inhaled Oxygen Concentration - - Weight 43.5 kg (95 lb 12.8 oz) 08/22/2017 2:33 P M EDT Height 160 cm (5' 2.99 ) 08/22/2017 2:33 PM EDT Body Mass Index 16.97 08/22/2017 2:33 PM EDT Plan of Treatment Health Maintenance Due Date Last Done Comments DEPRESSION SCREENING 2009 SMOKING Hx and SMOKELESS TOBACCO SCREENING 2010 HEPATITIS C SCREENING 11/12/2015 HIV ONE-TIME SCREENING (18-6 5 YEARS) 11/12/2015 PAP SMEAR 2018 COVID-19 VACCINE (2023-2 5 season) 2023 07/28/2020, 06/30/2020 Adult Td,Tdap Booster 12/31/2028 12/31/2018 MENINGOCOCCAL VACCINES (ACWY) Completed 10/09/2015 MENINGOCOCCAL VACCINES (B) Completed 06/25, 12/25/2017 HEPATITIS A VACCINES Aged Out No long er eligible based on patient's age to complete this topic HIB VACCINES Aged Out No longer eligi ble based on patient's age to complete this topic PNEUMOCOCCAL VACCINES (0-49 years) Aged Out No longer eligible b ased on patient's age to complete this topic Medical Devices Not on file Insurance R R R R R R R R Care Teams Casing Splitter Relationship Specialty Start Date End Date Maria Del Carmen Gutierrez MD PCP - General Adolescent Medicine 08/15/17 Additional Source Comments The information contained in this document represents components of the legal health record. It is not the complete legal health record.[facility]
== END 2024-12-02 09:18 | disposition home or self-care (01) ==
LOC: HO.HMCC 08:26
PROVIDERS: PCP Internal Medicine; Visit Provider Internal Medicine
DX: Z00.01 Encounter for general adult medical examination with abnormal findings (principal); Z91.09 Other allergy status, other than to drugs and biological substances; Z80.8 Family history of malignant neoplasm of other organs or systems; F50.82 Avoidant/restrictive food intake disorder; F41.1 Generalized anxiety disorder; J45.990 Exercise induced bronchospasm; Z71.89 Other specified counseling

== ENCOUNTER → 2024-12-02 08:26 | Outpatient (BNVA) | payer BC, SELFPAY | PROVIDERS: PCP Internal Medicine; Visit Provider Internal Medicine | DX: Z00.01 Encounter for general adult medical examination with abnormal findings (principal); J30.9 Allergic rhinitis, unspecified; F41.1 Generalized anxiety disorder; F50.82 Avoidant/restrictive food intake disorder; J45.990 Exercise induced bronchospasm; Z80.8 Family history of malignant neoplasm of other organs or systems; Z87.440 Personal history of urinary (tract) infections; Z91.09 Other allergy status, other than to drugs and biological substances | CPT/HCPCS: 96127 ==

== ENCOUNTER 2024-12-05 10:34 | Outpatient (REF) | payer BC, SELFPAY ==
--- OUTSIDE RECORDS SUMMARY | 2024-12-05 12:03 | XMS_ITS | Patient Health Record ---
Author Organization [facility] Address [address] [place] [id number] Care Team Providers Care Matlab Developer Name Role Phone Maria Del Carmen Gutierrez Primary Care Provider Markie Scott Jr Unavailable Reason For Referral No Information Medications Medication [...] Problem Status W/U Status Risk Notes Problem [id number] Gastroesophageal reflux disease without esophagitis (K21.9) Active confirmed Problem 811248308 Esophageal spasm (K22.4) Active confirmed Problem 28137195 Dysphagia, unspecified type (R13.10) Active confirmed Plan Of Treatment Future Test Test Name Order Date UPPER GI ENDOSCOPY 10/13/2017 Insurance Providers Payer Name Payer Address Payer Phone Subscriber Number Group Number Insured Name Patient Relationship to Insured Coverage Start Date Coverage End Date [facility] [address] [address] [place] [address] [id number] LINDA HERNANDEZ Self - patient is the insured Medical (General) History Medical History History ICD Code asthma Denies [place],DM,CVA,Lung disease,renal dise ase Surgical History Surgery Date(Month/Year)
--- OUTSIDE RECORDS SUMMARY | 2024-12-05 12:03 | XMS_ITS | Clinical Summary ---
Author Organization [facility] Address [address] [place] [address] Phone Care Team Providers Care International Banker Name Role Phone Maria Del Carmen Gutierrez MD Primary Care Provider [phone]- [phone] Allergies No known active allergies Medications montelukast [...] R R R R R Care Teams International Banker Relationship Specialty Start Date End Date Maria Del Carmen Gutierrez MD PCP - General Adolescent Medicine 08/15/17 Additional Source Comments The information contained in this document represents components of the legal health record. It is not the complete legal health record.[facility]
[2024-12-05 14:57] LABS: Anion Gap 12 (12-20); Blood Urea Nitrogen 7 mg/dL (9-16); Calcium 8.6 mg/dL (8.4-10.2); Carbon Dioxide 23 mmol/L (22-29); Chloride 111 mmol/L (96-108); Cholesterol 195 mg/dL (<200); Estimated Glomerular Filt Rate > 60; HDL Cholesterol 74 mg/dL (>40); Potassium 4.1 mmol/L (3.3-5.1); Sodium 142 mmol/L (135-145); Triglycerides 71 mg/dL (<150)
== END 2024-12-05 10:35 | disposition home or self-care (01) ==
LOC: HO.WFDLDS 10:34
PROVIDERS: Visit Provider Internal Medicine
DX: Z00.01 Encounter for general adult medical examination with abnormal findings (principal); J45.990 Exercise induced bronchospasm; F50.82 Avoidant/restrictive food intake disorder; F41.1 Generalized anxiety disorder; Z80.8 Family history of malignant neoplasm of other organs or systems; Z13.220 Encounter for screening for lipoid disorders; Z13.1 Encounter for screening for diabetes mellitus; Z71.89 Other specified counseling; Z91.09 Other allergy status, other than to drugs and biological substances
CPT/HCPCS: 36415; 80048; 80061; 82306; 84443